=== PATIENT | male | born 1950 | race Caucasian/White ===

== ENCOUNTER → 2017-11-30 | Outpatient (CLI) | payer MEDICARE, BC ==
--- NOTE | 2017-11-30 13:48 | US ---
LOWER EXTREMITY VENOUS INSUFFICIENCY SIDE PERFORMED: Bilateral 1) Color flow is present and patency is documented in the following vessels. No DVT or SVT is noted . EIV Common Femoral Vein Deep Femoral Vein Femoral Vein Popliteal Vein Proximal Calf Veins Greater Saph Vein Upper Small Saph Vein 2) There is venous reflux noted at the following venous levels: Right GSV, Left popliteal vein, left small saph vein, left prox calf vein Extremely difficult exam due to patient movement and patient unable to perform valsalva maneuvers . W hen I pushed on patient's leg, patient would move causing artifact and inadequate valsalva maneuvers. IMPRESSION: No ultrasound evidence for acute DVT in either lower extremity. Suboptimal evaluation for venous insufficiency noted as detailed above.
== END | disposition home or self-care (01) ==
LOC: RADUSWWP 09:27
PROVIDERS: ATTEND Podiatrist
DX: I87.2 Venous insufficiency (chronic) (peripheral) (principal); M79.604 Pain in right leg; M79.605 Pain in left leg
CPT/HCPCS: 93923; 93970

== ENCOUNTER 2017-12-22 12:32 | Inpatient (IN) | payer MEDICARE, BC ==
--- NOTE | 2017-12-22 13:10 | ED ---
General Adult HPI - General Chief complaint: Extremity Problem,Nontraumatic Stated complaint: lt leg infection,swelling Time Seen by Provider: 12/22/17 12:53 Source: patient, family, RN notes reviewed Mode of arrival: wheelchair Limitations: no limitations - History of Present Illness Initial comments: Patient's a 67-year-old male presented to the emergency room today with a chief complaint of bilateral leg infection. 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 Soliman. He states he was advised coming here to the emergency room for admission and IV antibiotics. He states he was following up with wound care recently discharged from their service. States was doing well until just 2-3 days ago began having some increased pain to the top of both left and right foot. States it's itchy. States more painful. Patient states currently not on antibiotics. Patient denies any recent fever, chills, shortness of breath, chest pain, back pain, abdominal pain, nausea or vomiting, numbness or tingling, headaches or visual changes, or any other complaints. - Related Data Home Medications Medication Instructions Recorded Confirmed Lacosamide [Vimpat] 100 mg PO BID 11/05/17 12/22/17 carBAMazepine 600 mg PO BID 11/05/17 12/22/17 Ibuprofen [Motrin Ib] 200 - 400 mg PO Q6H PRN 12/22/17 12/22/17 Allergies Allergy/AdvReac Type Severity Reaction Status Date / Time Penicillins Allergy Rash/Hives Verified 12/22/17 13:06 Review of Systems ROS Statement: Those systems with pertinent positive or pertinent negative responses have been documented in the HPI. ROS Other: All systems not noted in ROS Statement are negative. Past Medical History Past Medical History: Skin Disorder Additional Past Medical History / Comment(s): wound on alley legs, lymph edema History of Any Multi-Drug Resistant Organisms: None Reported Past Surgical History: Joint Replacement, Tonsillectomy Additional Past Surgical History / Comment(s): rt knee replacement, Past Anesthesia/Blood Transfusion Reactions: No Reported Reaction Past Psychological History: No Psychological Hx Reported Smoking Status: Never smoker Past Alcohol Use History: Rare Past Drug Use History: None Reported - Past Family History Mother Family Medical History: No Reported History Father Family Medical History: Coronary Artery Disease (CAD) General Exam - General Exam Comments Initial Comments: General: The patient is awake and alert, in no distress, and does not appear acutely ill. Eye: Pupils are equal, round and reactive to light, extra-ocular movements are intact. No nystagmus. There is normal conjunctiva bilaterally. No signs of icterus. Ears, nose, mouth and throat: There are moist mucous membranes and no oral lesions. Neck: The neck is supple, there is no tenderness or JVD. Cardiovascular: There is a regular rate and rhythm. No murmur, rub or gallop is appreciated. Respiratory: Lungs are clear to auscultation, respirations are non-labored, breath sounds are equal. No wheezes, stridor, rales, or rhonchi. Musculoskeletal: Normal ROM, no tenderness. Strength 5/5. Sensation intact. Pulses equal bilaterally 2+. Neurological: A&O x 3. CN II-XII intact, There are no obvious motor or sensory deficits. Coordination appears grossly intact. Speech is normal. Skin: Patient does have increased redness to the lower extremities bilaterally. Right lower extremity has redness around the top right ankle. No streaking. There is redness to the top left foot and areas of scaling going up into the left calf area. Psychiatric: Cooperative, appropriate mood & affect, normal judgment. Limitations: no limitations Course Vital Signs 12/22/17 12:40 Temperature 97.5 F L Pulse Rate 60 Respiratory 18 Rate Blood Pressure 149/69 O2 Sat by Pulse 96 Oximetry Medical Decision Making - Medical Decision Making Patient's posterior of the myosin here the emergency room and admitted to the hospital. - Lab Data Result diagrams: 12/22/17 13:30 12/22/17 13:30 Lab Results 12/22/17 12/22/17 Range/Units 13:30 13:30 WBC 6.9 (3.8-10.6) k/uL RBC 4.26 L (4.30-5.90) m/uL Hgb 13.2 (13.0-17.5) gm/dL Hct 40.3 (39.0-53.0) % MCV 94.6 (80.0-100.0) fL MCH 30.9 (25.0-35.0) pg MCHC 32.6 (31.0-37.0) g/dL RDW 12.4 (11.5-15.5) % Plt Count 237 (150-450) k/uL Neutrophils % 68 % Lymphocytes % 18 % Monocytes % 8 % Eosinophils % 4 % Basophils % 1 % Neutrophils # 4.6 (1.3-7.7) k/uL Lymphocytes # 1.2 (1.0-4.8) k/uL Monocytes # 0.6 (0-1.0) k/uL Eosinophils # 0.3 (0-0.7) k/uL Basophils # 0.0 (0-0.2) k/uL Sodium 144 (137-145) mmol/L Potassium 4.5 (3.5-5.1) mmol/L Chloride 105 (98-107) mmol/L Carbon Dioxide 26 (22-30) mmol/L Anion Gap 13 mmol/L BUN 27 H (9-20) mg/dL Creatinine 0.88 (0.66-1.25) mg/dL Est GFR (CKD-EPI)AfAm >90 (>60 ml/min/1.73 sqM) Est GFR (CKD-EPI)NonAf 88 (>60 ml/min/1.73 sqM) Glucose 89 (74-99) mg/dL Calcium 9.1 (8.4-10.2) mg/dL Total Bilirubin 0.3 (0.2-1.3) mg/dL AST 18 (17-59) U/L ALT 15 L (21-72) U/L Alkaline Phosphatase 105 (38-126) U/L Total Protein 6.9 (6.3-8.2) g/dL Albumin 4.0 (3.5-5.0) g/dL Disposition Clinical Impression: Bilateral lower leg cellulitis Disposition: ADMITTED IP TO THIS HOSP Condition: Good Is patient prescribed a controlled substance at discharge?: No Referrals: Alirio Soliman DPM [STAFF PHYSICIAN] - 1-2 days
[2017-12-22] MEDS ORDERED: VANCOMYCIN 1,000 MG in SODIUM CHLORIDE 0.9% 250 ML IVPB STA (13:47)
[2017-12-22] MEDS ORDERED: VANCOMYCIN IV PER PHARMACY 1 EACH MISC MISCELLANE PRN (13:47)
[2017-12-22 14:00] LABS: Basophils % (A) 1 %; Eosinophils # (A) 0.3 k/uL (0-0.7); Eosinophils % (A) 4 %; HCT 40.3 % (39.0-53.0); HGB 13.2 gm/dL (13.0-17.5); Lymphocytes # (A) 1.2 k/uL (1.0-4.8); Lymphocytes % (A) 18 %; MCH 30.9 pg (25.0-35.0); MCHC 32.6 g/dL (31.0-37.0); MCV 94.6 fL (80.0-100.0); Mean Platelet Volume 7.2; Monocytes # (A) 0.6 k/uL (0-1.0); Monocytes % (A) 8 %; Neutrophils # (A) 4.6 k/uL (1.3-7.7); Neutrophils % (A) 68 %; Platelet Count 237 k/uL (150-450); RBC 4.26 m/uL (4.30-5.90); RDW 12.4 % (11.5-15.5); WBC 6.9 k/uL (3.8-10.6)
[2017-12-22] MEDS ORDERED: VANCOMYCIN 2,000 MG in SODIUM CHLORIDE 0.9% 500 ML IVPB STA (14:06)
[2017-12-22 14:17] LABS: ALT 15 U/L (21-72); AST 18 U/L (17-59); Alkaline Phosphatase 105 U/L (38-126); Anion Gap 13 mmol/L; Blood Urea Nitrogen 27 mg/dL (9-20); Calcium 9.1 mg/dL (8.4-10.2); Carbon Dioxide 26 mmol/L (22-30); Chloride 105 mmol/L (98-107); Glucose 89 mg/dL (74-99); Potassium 4.5 mmol/L (3.5-5.1); Sodium 144 mmol/L (137-145); Total Bilirubin 0.3 mg/dL (0.2-1.3); Total Protein 6.9 g/dL (6.3-8.2)
[2017-12-22] MEDS ORDERED: HYDROcodone/APAP 5-325MG 1 EACH TAB PO STA (14:28)
[2017-12-22] MEDS ORDERED: SODIUM CHLORIDE 0.9% 1,000 ML IV STA (14:29)
[2017-12-22] MEDS ORDERED: NALOXONE 0.4 MG/ML 1 ML VIAL IV PRN (14:40)
[2017-12-22] MEDS ORDERED: SODIUM CHLORIDE 0.9% 1,000 ML IV ONE (14:40)
[2017-12-22] MEDS ORDERED: ACETAMINOPHEN TAB 325 MG TAB PO PRN (14:40)
[2017-12-22] MEDS ORDERED: ONDANSETRON ODT 4 MG TAB PO PRN (14:41)
[2017-12-22] MEDS ORDERED: MORPHINE SULFATE 4MG/4ML SYRG IVP STA (16:03)
[2017-12-22] MEDS: HYDROcodone/APAP 5-325MG 1 EACH TAB PO PRN (20:30)
[2017-12-22] MEDS: carBAMazepine 200 MG TAB PO SCH (20:30)
[2017-12-22] MEDS: LACOSAMIDE 50 MG TABLET PO SCH (20:33)
--- NOTE | 2017-12-22 22:47 | HP ---
HISTORY AND PHYSICAL DATE OF ADMISSION: 12/22/2017 PRESENTING COMPLAINT: Lower extremity wounds. HISTORY OF PRESENT COMPLAINT: A pleasant 67-year-old patient of Dr. Yisel Alfaro. Chronic stable medical conditions include osteoarthritis, seizures, bilateral lower extremity lymphedema. The patient about 4 weeks ago developed what he describes as superficial blisters on the lower extremity and then the blisters broke down. The patient did go to the wound center, followed with Dr. Soliman and received treatment for the same. The patient was discharged from the wound center last week, but the patient again started having breakdown of the skin and Dr. Soliman then asked the patient to come to the hospital. The patient reveals skin is down to the feet, tender. Denies any fever and it does ooze. REVIEW OF SYSTEMS: CONSTITUTIONAL: Tired. HEENT: None. RESPIRATORY: None. CARDIOVASCULAR: None. GASTROINTESTINAL: None. GENITOURINARY: None. MUSCULOSKELETAL: None. DERMATOLOGICAL: As above. LYMPHATICS: Bilateral lower extremity lymphedema. PSYCHIATRY: None. NEUROLOGICAL: None. PAST MEDICAL HISTORY: Osteoarthritis, seizures, lymphedema, multiple lower extremity wounds, venous insufficiency. PAST SURGICAL HISTORY: Joint replacement, tonsillectomy, right knee replacement. SOCIAL HISTORY: Lives with sister. No smoking. Alcohol rarely. FAMILY HISTORY: Dementia. HOME MEDICATIONS: 1. Carbamazepine 600 mg p.o. b.i.d. 2. Vimpat 100 mg b.i.d. 3. Motrin 200-400 mg every 6 hours p.r.n. ALLERGIES: PENICILLIN. EXAMINATION: Temperature 97.8, pulse 57, respirations 18, blood pressure 114/74, pulse ox 97% on room air. GENERAL APPEARANCE: Well-built, BMI 34, lying in bed, tired-appearing. EYES: Pupils equal. Conjunctivae normal. HEENT: External appearance of nose and ears normal. Oral cavity normal. NECK: JVD not raised. Mass not palpable. RESPIRATORY: Effort normal. LUNGS: Fair air entry. CARDIOVASCULAR: First and second sounds normal. Lower extremity edema is present. ABDOMEN: Soft, nontender. Liver, spleen not palpable. LYMPHATIC: No lymph node palpable in neck or axillae. The patient may have lymphedema lower extremities. PSYCHIATRY: Alert and oriented x3. Mood and affect normal. DERMATOLOGICAL: Superficial breakdown of the skin from above the ankle down to the foot, appears to be all rather superficial area of redness, tenderness. INVESTIGATIONS: White count 6.9, hemoglobin 13.2. Potassium 4.5, BUN 27, creatinine 0.88. ASSESSMENT: 1. Bilateral lower extremity wounds, looks like patient may have underlying lymphedema/venous insufficiency. The patient does describe blisters previously and superficial skin has been denuded. This could be secondarily infected. 2. Primary osteoarthritis. 3. Seizure disorder. 4. Chronic lymphedema. 5. Obesity, BMI 34. PLAN: Will get a dermatological consultation. Patient may need a biopsy at the border of the lesions and normal skin. Will also consult Infectious Disease. The patient is started on vancomycin in the ER. Will hold off any dressing for right now. Until consultants have seen the patient. Care was discussed with the patient. Keep the legs elevated. MMELMERL / TRINIDAD: [id number] /
[2017-12-22] MEDS: VANCOMYCIN 1,750 MG in SODIUM CHLORIDE 0.9% 250 ML IVPB SCH (23:16)
[2017-12-23] MEDS ORDERED: HYDROcodone/APAP 5-325MG 1 EACH TAB ONE (02:20)
[2017-12-23] MEDS: LACOSAMIDE 50 MG TABLET PO SCH ×2 (07:39→20:08)
[2017-12-23] MEDS: carBAMazepine 200 MG TAB PO SCH ×2 (07:39→20:08)
[2017-12-23] MEDS: HYDROcodone/APAP 5-325MG 1 EACH TAB PO PRN ×3 (07:39→15:25)
[2017-12-23] MEDS: VANCOMYCIN 1,750 MG in SODIUM CHLORIDE 0.9% 250 ML IVPB SCH (11:06)
[2017-12-23] MEDS: SILVER sulfADIAZINE Cream 400 GM 1 APPLIC APPLIC TOPICAL SCH (18:43)
--- NOTE | 2017-12-23 21:29 | PN ---
PROGRESS NOTE DATE OF SERVICE: December 23, 2017. PRESENT COMPLAINT: Lower extremity wounds. INTERVAL HISTORY: This is a patient presented with bilateral lower extremity cellulitis and superficial wound having failed outpatient treatment. Dr. Carver from Infectious Disease is following. The redness and pain is still present. REVIEW OF SYSTEMS: Done for constitutional, cardiovascular, GI, pulmonary, relevant findings as above. CURRENT MEDICATIONS: Include IV vancomycin and Silvadene topical cream. PHYSICAL EXAMINATION: Afebrile. Pulse 60. Respiratory rate 16. Blood pressure 120/79, pulse ox 98% on room air. General appearance: Sitting up on a chair, awake. Eyes: Pupils equal. Conjunctivae normal. HEENT external appearance of nose and ears normal. Oral cavity normal. Neck JVD not raised. Mass not palpable. Respiratory effort lungs are clear. Cardiovascular 1st and second sounds normal. Lower extremity edema is present. Dermatological superficial wound to both lower extremities just above the ankle and there. INVESTIGATIONS: No blood work from today. ASSESSMENT: 1. Bilateral lower extremity wounds, superficial with associated cellulitis probably secondary to underlying lymphedema and venous insufficiency with possible secondary infection. 2. Primary osteoarthritis. 3. Seizure disorder. 4. Chronic lymphedema. 5. Obesity BMI 34. PLAN: Continue with IV antibiotics Silvadene dressing. Await input from Dermatology and follow with ID. [id number] / IJN: [id number] /
--- NOTE | 2017-12-24 00:02 | P.CONS ---
History of Present Illness - Reason for Consult Consult date: 12/23/17 - Chief Complaint leg swelling - History of Present Illness 67 year old male under the care of his sister and has cognitive deficiencies presents to the emergency center approximately one week after his last evaluation at the wound healing Center. The patient had been cared for because of his bilateral lower extremity edema and was treated with multilayer wraps which allowed resolution of his bilateral lower extremity edema and prior ulcerations. It appears now within a week of discharge she has had a significant worsening of his lower extremity edema, he now has ulceration and cellulitis that is a bit painful and pruritic. The lower extremity difficulties the patient is not having other significant complaints. He does not believe his had a fever, chills or rigors. He has been able to eat well without any significant nausea or emesis. Denies skin troubles other than the lower extremities. Review of Systems HEENT:Denies headache or acute visual change. Denies sinus or mouth discomforts. Denies neck stiffness or pain. Denies significant oral cavity pain. Denies difficulty on swallowing. Lungs: Denies significant shortness of breath, cough, sputum production, or hemoptysis. Cardiovascular: Denies significant shortness of breath, chest pain, chest wall pain, orthopnea, dyspnea on exertion, syncope Gastrointestinal:Denies nausea, vomiting, diarrhea, constipation, hematemesis, melena, hematochezia. No no significant change of bowel habit noticed. Musculoskeletal: denies significant myalgias or arthralgias. No new joint swelling. Denies new back pain. Skin: As per the HPI has swelling in ulcers to the bilateral lower extremity Neuro: Denies headache or visual change. Denies any new onset weakness or difficulty with ambulation. Denies falls or seizures. Psychiatric:Denies anxiety or depression. Endocrine: Denies significant fatigue, denies significant weight loss or weight gain. Past Medical History Past Medical History: Osteoarthritis (OA), Seizure Disorder, Skin Disorder, Vascular Disorder Additional Past Medical History / Comment(s): alley wound on alley legs-pt stated he was d'c from [facility] and from home care services iether thu or sat., lymph edema, chi--2016 d/t fall, epilepsy -last seizure 5 years ago, venous insufficiency. 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 rt knee goes out and has had falls.(fell last thursday) History of Any Multi-Drug Resistant Organisms: None Reported Past Surgical History: Joint Replacement, Tonsillectomy Additional Past Surgical History / Comment(s): rt knee replacement, Past Anesthesia/Blood Transfusion Reactions: No Reported Reaction Additional Psychological History / Comment(s): Cared for by his sister. Denies tobacco use. Retired. No experience. No children. No animal exposures Smoking Status: Never smoker - Past Family History Mother Family Medical History: Dementia Father Family Medical History: Coronary Artery Disease (CAD) Medications and Allergies Home Medications and Allergies Comment(s): Current Medications Acetaminophen (Tylenol Tab) 650 mg PO Q6HR PRN PRN Reason: Mild Pain or Fever > 100.5 Hydrocodone Bitart/Acetaminophen (Selah 5-325) 1 each PO Q4HR PRN PRN Reason: Moderate Pain Last Admin: 12/23/17 15:25 Dose: 1 each Carbamazepine (Tegretol) 600 mg PO BID [facility] Last Admin: 12/23/17 20:08 Dose: 600 mg Vancomycin HCl 1,750 mg/ (Sodium Chloride) 250 mls @ 125 mls/hr IVPB Q12H [facility] Last Admin: 12/23/17 11:06 Dose: 125 mls/hr Lacosamide (Vimpat) 100 mg PO BID [facility] Last Admin: 12/23/17 20:08 Dose: 100 mg Miscellaneous Information (Vancomycin Trough Due) 1 each MISCELLANE ONCE ONE Stop: 12/24/17 11:01 Naloxone HCl (Narcan) 0.2 mg IV Q2M PRN PRN Reason: Opioid Reversal Ondansetron HCl (Zofran Odt) 4 mg PO Q8HR PRN PRN Reason: Nausea Silver Sulfadiazine (Silvadene Cream) 1 applic TOPICAL DAILY [facility] Last Admin: 12/23/17 18:43 Dose: 1 applic Home Medications Medication Instructions Recorded Confirmed Type Lacosamide [Vimpat] 100 mg PO BID 11/05/17 12/22/17 History carBAMazepine 600 mg PO BID 11/05/17 12/22/17 History Ibuprofen [Motrin Ib] 200 - 400 mg PO Q6H PRN 12/22/17 12/22/17 History Allergies Allergy/AdvReac Type Severity Reaction Status Date / Time Penicillins Allergy Rash/Hives Verified 12/22/17 13:06 Physical Exam Vitals: Vital Signs Temp Pulse Resp BP Pulse Ox 12/23/17 23:00 97.7 F 60 18 119/66 98 12/23/17 15:00 97.6 F 51 L 18 112/59 100 12/23/17 06:07 97.4 F L 69 16 121/79 98 Intake and Output 12/23/17 12/23/17 12/24/17 14:59 22:59 06:59 Intake Total 200 Balance 200 Intake: Oral 200 Other: Voiding Method Toilet Toilet # Voids 3 [id number] male who is comfortable at this time but complains of pain to his bilateral lower extremities HEENT: Anicteric conjunctiva are pink and moist nasal mucosa grossly intact without significant lesions, there is no thrush. Neck: The neck is supple without significant lymphadenopathy or thyromegaly. Lungs: Good bilateral air entry without significant crackles or wheezing. There is no significant bronchial sounds. There is no egophony or dullness. Heart: Regular rate and rhythm with an audible S1-S2, no S3 no S4. There is no significant murmur click or rub, PMI was nondisplaced. Abdomen: Obese, Positive bowel sounds soft and nontender without palpable masses or organomegaly. There was no guarding or rebound. Extremities: The upper extremities have excellent pulses they are symmetric, no significant petechiae or telangiectasia. No splinter hemorrhages were noted. The lower extremities have evidence of chronic significant edema. There is evidence of chronic skin changes the bilateral lower extremities from venous stasis. However there is evidence of active ulcerations on the bilateral lower extremities distal just proximal to the ankle bilaterally the anterior half of both lower extremities have evidence of ulceration that appears to be just full- thickness with bloody dried crusty drainage, patient relates it's pruritic Neuro: The patient is awake and alert. Is able to interact he is a poor historian, relied and his sister on the phone to help with details. Results CBC & Chem 7: 12/22/17 13:30 12/22/17 13:30 Labs: Microbiology - Last 24 Hours (Table) 12/22/17 13:30 Blood Culture - Preliminary Blood No Growth after 24 hours Laboratory Results WBC 6.9 k/uL (3.8-10.6) 12/22/17 13:30 RBC 4.26 m/uL (4.30-5.90) L 12/22/17 13:30 Hgb 13.2 gm/dL (13.0-17.5) 12/22/17 13:30 Hct 40.3 % (39.0-53.0) 12/22/17 13:30 MCV 94.6 fL (80.0-100.0) 12/22/17 13:30 MCH 30.9 pg (25.0-35.0) 12/22/17 13:30 MCHC 32.6 g/dL (31.0-37.0) 12/22/17 13:30 RDW 12.4 % (11.5-15.5) 12/22/17 13:30 Plt Count 237 k/uL (150-450) 12/22/17 13:30 Neutrophils % 68 % 12/22/17 13:30 Lymphocytes % 18 % 12/22/17 13:30 Monocytes % 8 % 12/22/17 13:30 Eosinophils % 4 % 12/22/17 13:30 Basophils % 1 % 12/22/17 13:30 Neutrophils # 4.6 k/uL (1.3-7.7) 12/22/17 13:30 Lymphocytes # 1.2 k/uL (1.0-4.8) 12/22/17 13:30 Monocytes # 0.6 k/uL (0-1.0) 12/22/17 13:30 Eosinophils # 0.3 k/uL (0-0.7) 12/22/17 13:30 Basophils # 0.0 k/uL (0-0.2) 12/22/17 13:30 Sodium 144 mmol/L (137-145) 12/22/17 13:30 Potassium 4.5 mmol/L (3.5-5.1) 12/22/17 13:30 Chloride 105 mmol/L (98-107) 12/22/17 13:30 Carbon Dioxide 26 mmol/L (22-30) 12/22/17 13:30 Anion Gap 13 mmol/L 12/22/17 13:30 BUN 27 mg/dL (9-20) H 12/22/17 13:30 Creatinine 0.88 mg/dL (0.66-1.25) 12/22/17 13:30 Est GFR (CKD-EPI)AfAm >90 (>60 ml/min/1.73 sqM) 12/22/17 13:30 Est GFR (CKD-EPI)NonAf 88 (>60 ml/min/1.73 sqM) 12/22/17 13:30 Glucose 89 mg/dL (74-99) 12/22/17 13:30 Calcium 9.1 mg/dL (8.4-10.2) 12/22/17 13:30 Total Bilirubin 0.3 mg/dL (0.2-1.3) 12/22/17 13:30 AST 18 U/L (17-59) 12/22/17 13:30 ALT 15 U/L (21-72) L 12/22/17 13:30 Alkaline Phosphatase 105 U/L (38-126) 12/22/17 13:30 Total Protein 6.9 g/dL (6.3-8.2) 12/22/17 13:30 Albumin 4.0 g/dL (3.5-5.0) 12/22/17 13:30 Microbiology 12/22/17 13:30 Blood Blood Culture - Preliminary No Growth after 24 hours Assessment and Plan (1) Venous stasis ulcer of left lower leg with edema of left lower leg Current Visit: No Status: Acute Code(s): I83.029 - VARICOSE VEINS OF LEFT LOWER EXTREMITY W ULCER OF UNSP SITE; I83.892 - VARICOSE VEINS OF L LOW EXTREM WITH OTHER COMPLICATIONS; L97.929 - NON-PRS CHRONIC ULC UNSP PRT OF L LOW LEG W UNSP SEVERITY; R60.9 - EDEMA, UNSPECIFIED SNOMED Code(s): 33543937764478170 (2) Bilateral lower leg cellulitis Narrative/Plan: 67-year-old male who is under the care of the sister and the family home presents to Hospital 1 week after being discharged from the wound center with recurrence of the lower extremity edema and ulcerations. The patient's sister relates that he sits with his legs down, he picks at the lower extremities especially when he starts to have discomfort in his constantly been worsening in the last week. The patient this time allows her wrap to be applied. He does allow his legs to be elevated at the end of his chair that her help with his edema. He fortunately is not in severe pain but does not feel well. Antimicrobial therapy has really been initiated and await cultures to further help direct the course. He'll need to go back to the wound healing center after discharge for further wraps until he is healed and then will need to have further plans possibly CircAid or similar for chronic lower extremity edema control. We also do well with the addition of Atarax for control of his pruritus. We'll entry is adequate protein a multivitamin is added. Current Visit: Yes Status: Acute Code(s): L03.116 - CELLULITIS OF LEFT LOWER LIMB; L03.115 - CELLULITIS OF RIGHT LOWER LIMB SNOMED Code(s): 611825451
[2017-12-24] MEDS: hydrOXYzine HCL 25 MG TAB PO SCH ×5 (00:28→23:41)
[2017-12-24] MEDS: VANCOMYCIN 1,750 MG in SODIUM CHLORIDE 0.9% 250 ML IVPB SCH ×3 (00:28→23:45)
[2017-12-24] MEDS: carBAMazepine 200 MG TAB PO SCH ×2 (08:36→20:25)
[2017-12-24] MEDS: HYDROcodone/APAP 5-325MG 1 EACH TAB PO PRN (08:42)
[2017-12-24] MEDS: LACOSAMIDE 50 MG TABLET PO SCH ×2 (09:59→20:25)
[2017-12-24] MEDS: SILVER sulfADIAZINE Cream 400 GM 1 APPLIC APPLIC TOPICAL SCH (09:59)
[2017-12-24] MEDS ORDERED: VANCOMYCIN TROUGH DUE 1 EACH MISC MISCELLANE ONE (11:00)
[2017-12-24] MEDS: MULTIVITAMINS, THERA 1 EACH TAB PO SCH (11:54)
[2017-12-24 22:07] VITALS: PULSE 59
--- NOTE | 2017-12-24 23:13 | PN ---
PROGRESS NOTE DATE OF SERVICE: 12/24/2017 PRESENT COMPLAINT: Lower extremity wounds. INTERVAL HISTORY: The patient with bilateral lower extremity wounds, by Dr. Carver felt to be venous stasis ulcers with secondary cellulitis. The patient is on antibiotics, tolerating his diet. REVIEW OF SYSTEMS: Done for constitutional, cardiovascular, GI, pulmonary, dermatological; relevant findings as above. CURRENT MEDICATIONS: Include: 1. IV vancomycin. 2. Silvadene. EXAMINATION: Temperature 98, pulse 81, respirations 20, blood pressure 129/51, pulse ox 100% on room air. GENERAL APPEARANCE: Sitting up, comfortable. EYES: Pupils equal. Conjunctivae normal. HEENT: External nose and ears normal. Oral cavity normal. NECK: JVD not raised. Mass not palpable. RESPIRATORY: Effort normal. Lungs are clear. CARDIOVASCULAR: First and second sounds normal. No edema. DERMATOLOGICAL: Dressing over the wound just above the ankle. INVESTIGATIONS: Creatinine 0.64. ASSESSMENT: 1. Bilateral lower extremity venous insufficiency wounds with secondary cellulitis. 2. Possible bilateral lower extremity lymphedema. 3. Primary osteoarthritis. 4. Seizure disorder. 5. Obesity, BMI of 34. PLAN: Continue medication and treatment plan. Will check labs in the morning. Care was discussed with the patient. MMODL / IJN: [id number] /
--- NOTE | 2017-12-24 23:42 | P.PN ---
Subjective Progress Note Date: 12/24/17 Principal diagnosis: Lower extremity edema 67 year old male under the care of his sister and has cognitive deficiencies presents to the emergency center approximately one week after his last evaluation at the wound healing Center. The patient had been cared for because of his bilateral lower extremity edema and was treated with multilayer wraps which allowed resolution of his bilateral lower extremity edema and prior ulcerations. It appears now within a week of discharge she has had a significant worsening of his lower extremity edema, he now has ulceration and cellulitis that is a bit painful and pruritic. The lower extremity difficulties the patient is not having other significant complaints. He does not believe his had a fever, chills or rigors. He has been able to eat well without any significant nausea or emesis. Denies skin troubles other than the lower extremities. 12/24/2017 reveals the patient to be feeling somewhat better. He is denying intermitted troubles. Denies fevers chills or rigors or sweats. Lower extremity discomfort is improved with the current wraps in place. Objective - Vital Signs Vital signs: Vital Signs Temp 97.3 F L 12/24/17 22:05 Pulse 59 L 12/24/17 22:05 Resp 16 12/24/17 22:05 BP 144/66 12/24/17 22:05 Pulse Ox 100 12/24/17 22:05 Intake & Output 12/24/17 12/24/17 12/25/17 06:59 18:59 06:59 Intake Total 200 240 Balance 200 240 Intake: Oral 200 240 Other: Voiding Method Toilet # Voids 3 1 2 # Bowel Movements 0 - Exam 67-year-old male who is comfortable at this time the wraps have helped his lower extremity discomfort HEENT: Anicteric conjunctiva are pink and moist nasal mucosa grossly intact without significant lesions, there is no thrush. Neck: The neck is supple without significant lymphadenopathy or thyromegaly. Lungs: Good bilateral air entry without significant crackles or wheezing. There is no significant bronchial sounds. There is no egophony or dullness. Heart: Regular rate and rhythm with an audible S1-S2, no S3 no S4. There is no significant murmur click or rub, PMI was nondisplaced. Abdomen: Obese, Positive bowel sounds soft and nontender without palpable masses or organomegaly. There was no guarding or rebound. Extremities: The upper extremities have excellent pulses they are symmetric, no significant petechiae or telangiectasia. No splinter hemorrhages were noted. The lower extremities have evidence of chronic significant edema. There is evidence of chronic skin changes the bilateral lower extremities from venous stasis. However there is evidence of active ulcerations on the bilateral lower extremities distal just proximal to the ankle bilaterally the anterior half of both lower extremities have evidence of ulceration that appears to be just full- thickness with bloody dried crusty drainage, patient relates it's pruritic Neuro: The patient is awake and alert. Is able to interact he is a poor historian, no new acute complaint - Labs CBC & Chem 7: 12/22/17 13:30 12/24/17 11:33 Labs: Abnormal Lab Results - Last 24 Hours (Table) 12/24/17 Range/Units 11:33 Creatinine 0.64 L (0.66-1.25) mg/dL Microbiology - Last 24 Hours (Table) 12/22/17 13:30 Blood Culture - Preliminary Blood No Growth after 48 hours Laboratory Results WBC 6.9 k/uL (3.8-10.6) 12/22/17 13:30 RBC 4.26 m/uL (4.30-5.90) L 12/22/17 13:30 Hgb 13.2 gm/dL (13.0-17.5) 12/22/17 13:30 Hct 40.3 % (39.0-53.0) 12/22/17 13:30 MCV 94.6 fL (80.0-100.0) 12/22/17 13:30 MCH 30.9 pg (25.0-35.0) 12/22/17 13:30 MCHC 32.6 g/dL (31.0-37.0) 12/22/17 13:30 RDW 12.4 % (11.5-15.5) 12/22/17 13:30 Plt Count 237 k/uL (150-450) 12/22/17 13:30 Neutrophils % 68 % 12/22/17 13:30 Lymphocytes % 18 % 12/22/17 13:30 Monocytes % 8 % 12/22/17 13:30 Eosinophils % 4 % 12/22/17 13:30 Basophils % 1 % 12/22/17 13:30 Neutrophils # 4.6 k/uL (1.3-7.7) 12/22/17 13:30 Lymphocytes # 1.2 k/uL (1.0-4.8) 12/22/17 13:30 Monocytes # 0.6 k/uL (0-1.0) 12/22/17 13:30 Eosinophils # 0.3 k/uL (0-0.7) 12/22/17 13:30 Basophils # 0.0 k/uL (0-0.2) 12/22/17 13:30 Sodium 144 mmol/L (137-145) 12/22/17 13:30 Potassium 4.5 mmol/L (3.5-5.1) 12/22/17 13:30 Chloride 105 mmol/L (98-107) 12/22/17 13:30 Carbon Dioxide 26 mmol/L (22-30) 12/22/17 13:30 Anion Gap 13 mmol/L 12/22/17 13:30 BUN 27 mg/dL (9-20) H 12/22/17 13:30 Creatinine 0.64 mg/dL (0.66-1.25) L 12/24/17 11:33 Est GFR (CKD-EPI)AfAm >90 (>60 ml/min/1.73 sqM) 12/24/17 11:33 Est GFR (CKD-EPI)NonAf >90 (>60 ml/min/1.73 sqM) 12/24/17 11:33 Glucose 89 mg/dL (74-99) 12/22/17 13:30 Calcium 9.1 mg/dL (8.4-10.2) 12/22/17 13:30 Total Bilirubin 0.3 mg/dL (0.2-1.3) 12/22/17 13:30 AST 18 U/L (17-59) 12/22/17 13:30 ALT 15 U/L (21-72) L 12/22/17 13:30 Alkaline Phosphatase 105 U/L (38-126) 12/22/17 13:30 Total Protein 6.9 g/dL (6.3-8.2) 12/22/17 13:30 Albumin 4.0 g/dL (3.5-5.0) 12/22/17 13:30 Vancomycin Trough 16.7 ug/mL 12/24/17 11:33 Microbiology 12/22/17 13:30 Blood Blood Culture - Preliminary No Growth after 48 hours Assessment and Plan (1) Venous stasis ulcer of left lower leg with edema of left lower leg Current Visit: No Status: Acute Code(s): I83.029 - VARICOSE VEINS OF LEFT LOWER EXTREMITY W ULCER OF UNSP SITE; I83.892 - VARICOSE VEINS OF L LOW EXTREM WITH OTHER COMPLICATIONS; L97.929 - NON-PRS CHRONIC ULC UNSP PRT OF L LOW LEG W UNSP SEVERITY; R60.9 - EDEMA, UNSPECIFIED SNOMED Code(s): 81866467747890763 (2) Bilateral lower leg cellulitis Narrative/Plan: 67-year-old male who is under the care of the sister and the family home presents to Hospital 1 week after being discharged from the wound center with recurrence of the lower extremity edema and ulcerations. The patient's sister relates that he sits with his legs down, he picks at the lower extremities especially when he starts to have discomfort in his constantly been worsening in the last week. The patient this time allows her wrap to be applied. He does allow his legs to be elevated at the end of his chair that her help with his edema. He fortunately is not in severe pain but does not feel well. Antimicrobial therapy has really been initiated and await cultures to further help direct the course. He'll need to go back to the wound healing center after discharge for further wraps until he is healed and then will need to have further plans possibly CircAid or similar for chronic lower extremity edema control. We also do well with the addition of Atarax for control of his pruritus. We'll entry is adequate protein a multivitamin is added. 12/24/2017 patient is having improvement with the local wound care elevation and antibiotic therapy. The patient does not appear to need long-term intravenous antibiotic therapy and will transition to oral antibiotic therapy with local wound care at his discharge. We'll need to follow in the wound healing center so that his multilayer wraps can be restarted since he were highly effective for him in the past and then long-term compression to be obtained. Current Visit: Yes Status: Acute Code(s): L03.116 - CELLULITIS OF LEFT LOWER LIMB; L03.115 - CELLULITIS OF RIGHT LOWER LIMB SNOMED Code(s): 906733353
[2017-12-25 06:13] VITALS: BP 145/55; RESP 18; TEMP 98
[2017-12-25] MEDS: carBAMazepine 200 MG TAB PO SCH (07:44)
[2017-12-25] MEDS: hydrOXYzine HCL 25 MG TAB PO SCH ×2 (07:44→11:59)
[2017-12-25] MEDS: LACOSAMIDE 50 MG TABLET PO SCH (07:47)
[2017-12-25] MEDS: HYDROcodone/APAP 5-325MG 1 EACH TAB PO PRN ×2 (08:34→12:13)
[2017-12-25 09:05] LABS: Basophils % (A) 1 %; Eosinophils # (A) 0.3 k/uL (0-0.7); Eosinophils % (A) 3 %; HCT 38.5 % (39.0-53.0); HGB 12.6 gm/dL (13.0-17.5); Lymphocytes % (A) 12 %; MCH 31.2 pg (25.0-35.0); MCHC 32.8 g/dL (31.0-37.0); MCV 95.3 fL (80.0-100.0); Mean Platelet Volume 7.2; Monocytes # (A) 0.5 k/uL (0-1.0); Monocytes % (A) 6 %; Neutrophils # (A) 5.9 k/uL (1.3-7.7); Neutrophils % (A) 77 %; Platelet Count 212 k/uL (150-450); RBC 4.04 m/uL (4.30-5.90); RDW 12.4 % (11.5-15.5); WBC 7.7 k/uL (3.8-10.6)
[2017-12-25] MEDS ORDERED: SULFAMETHOX-TMP 800-160MG 1 EACH TAB PO STA (09:24)
[2017-12-25 09:38] LABS: Anion Gap 13 mmol/L; Blood Urea Nitrogen 13 mg/dL (9-20); Calcium 9.3 mg/dL (8.4-10.2); Carbon Dioxide 24 mmol/L (22-30); Chloride 107 mmol/L (98-107); Glucose 96 mg/dL (74-99); Potassium 4.4 mmol/L (3.5-5.1); Sodium 144 mmol/L (137-145)
[2017-12-25] MEDS: MULTIVITAMINS, THERA 1 EACH TAB PO SCH (11:59)
[2017-12-25] MEDS: SILVER sulfADIAZINE Cream 400 GM 1 APPLIC APPLIC TOPICAL SCH (14:14)
--- NOTE | 2017-12-25 19:08 | CONS ---
CONSULTATION DATE OF CONSULTATION: 12/25/2017. REQUESTING PHYSICIAN: Dr. Hess REASON FOR CONSULTATION: Leg rash. HISTORY OF PRESENT ILLNESS: This is a 67-year-old male with bilateral lower extremity edema and rash. He states his legs are much improved since he was admitted to the hospital. He states there were open sores that are now healing. He also states that the lower legs are painful and itchy. He admits to scratching the lower extremities and causing sores. He denies any fever or chills. Upon admission to the hospital, he was treated with IV vancomycin. He was later changed to oral Bactrim DS twice daily and topical Silvadene cream daily. PAST MEDICAL HISTORY: Osteoarthritis, seizure, lymphedema and venous insufficiency. PAST SURGICAL HISTORY: Joint replacement and tonsillectomy. SOCIAL HISTORY: Lives with the sister. Denies smoking and rare EtOH use. CURRENT MEDICATIONS: Tylenol 650 mg p.o. q.6 hours p.r.n. for pain. Hydrocodone and acetaminophen or [place] 5/325 1 every 1 p.o. q.4 hours p.r.n. for moderate pain. Tegretol 600 mg p.o. b.i.d., hydroxyzine 25 mg p.o. q.i.d. Vimpat 100 mg p.o. b.i.d., multivitamin 1 p.o. daily. Narcan 0.2 mg IV q.2 hours p.r.n. for opioid reversal. Zofran under the tongue , 4 mg p.o. q.8 hours p.r.n. for nausea. Silvadene topical application daily. Bactrim DS 1 p.o. b.i.d. PHYSICAL EXAMINATION: Skin is positive for edema, erythema, and scaling located on bilateral lower extremities. LABORATORY DATA: WBC 7.7, hemoglobin 12.6, hematocrit 38.5, red blood cells 4.04. Blood cultures negative at 48 hours. IMPRESSION: 1. Venous Stasis dermatitis. 2. Venostasis ulcer of the left lower leg with edema, appears to be improving. 3. Bilateral lower leg cellulitis, appears to be improving. RECOMMENDATIONS: 1. Start betamethasone dipropionate ointment. Apply to affected areas on bilateral lower extremities twice daily for 2 weeks. Follow up with [facility] outpatient in 2 weeks. 2. Continue to elevate bilateral lower extremities. Continue Silvadene cream daily to any open sores. 3. Continue with Bactrim DS and outpatient wound care per Infectious Disease recommendations. Thank you for the consultation. MMODL / IJN: [id number] / MTDHeber
[2017-12-25] MEDS ORDERED: SULFAMETHOX-TMP 800-160MG 1 EACH TAB PO SCH (21:00)
[2017-12-25] MEDS ORDERED: BETAMETHASONE DIPROPIONATE 0.05% OINTMENT 45 GM TUBE TOPICAL SCH (21:00)
--- NOTE | 2017-12-25 21:05 | DS ---
DISCHARGE SUMMARY DATE OF ADMISSION: December 22, 2017. DATE OF DISCHARGE: December 26, 2017. FINAL DIAGNOSES: 1. Acute bilateral lower extremity venous insufficiency wounds with secondary cellulitis present on admission. 2. Possible bilateral lower extremity lymphedema. 3. Primary osteoarthritis. 4. Seizure disorder. 5. Obesity BMI 34. HOSPITAL COURSE: This is a patient seems to have a combination of venous insufficiency and lymphedema, lower extremity, has had superficial blisters that have broken down. The patient did follow with Dr. Soliman at the wound care center and was discharged in the wound care center. Subsequently, felt to have cellulitis. The patient was treated with antibiotics and switched over to Bactrim and Silvadene cream to which he responded well. CONSULTATION: Dr. Carver infectious Disease, Dr. Navarro from Dermatology. EXAM: Lungs are clear. Cardiovascular 1st and 2nd sounds normal. INVESTIGATIONS: White count 7.7, hemoglobin 12.6. DISCHARGE MEDICATIONS: 1. Vimpat 100 mg p.o. b.i.d. 2. Carbamazepine 600 mg b.i.d. 3. Diprolene 0.05% topical b.i.d. 4. Multivitamin 1 tablet p.o. daily. 5. Silvadene 1% topical daily. 6. Bactrim DS 1 tablet b.i.d. for 14 tablets. Wound care to continue as per Dr. Carver. Follow up with the Wound Care Center next week. Follow up with Yisel Alfaro at 01/08/18. Copy to Yisel Alfaro. MMELMERL / IJN: [id number] /
--- NOTE | 2017-12-26 08:45 | P.PN ---
Subjective Progress Note Date: 12/25/17 Principal diagnosis: Lower extremity edema 67 year old male under the care of his sister and has cognitive deficiencies presents to the emergency center approximately one week after his last evaluation at the wound healing Center. The patient had been cared for because of his bilateral lower extremity edema and was treated with multilayer wraps which allowed resolution of his bilateral lower extremity edema and prior ulcerations. It appears now within a week of discharge she has had a significant worsening of his lower extremity edema, he now has ulceration and cellulitis that is a bit painful and pruritic. The lower extremity difficulties the patient is not having other significant complaints. He does not believe his had a fever, chills or rigors. He has been able to eat well without any significant nausea or emesis. Denies skin troubles other than the lower extremities. 12/24/2017 reveals the patient to be feeling somewhat better. He is denying intermitted troubles. Denies fevers chills or rigors or sweats. Lower extremity discomfort is improved with the current wraps in place. 12/25/2017 patient more comfortable and looks forward to going home, denies fevers and pain is improved. Objective - Vital Signs Vital signs: Vital Signs Temp 98.0 F 12/25/17 05:43 Pulse 59 L 12/25/17 05:43 Resp 18 12/25/17 05:43 BP 145/55 12/25/17 05:43 Pulse Ox 99 12/25/17 05:43 - Exam 67-year-old male who is comfortable at this time the wraps have helped his lower extremity discomfort HEENT: Anicteric conjunctiva are pink and moist nasal mucosa grossly intact without significant lesions, there is no thrush. Neck: The neck is supple without significant lymphadenopathy or thyromegaly. Lungs: Good bilateral air entry without significant crackles or wheezing. There is no significant bronchial sounds. There is no egophony or dullness. Heart: Regular rate and rhythm with an audible S1-S2, no S3 no S4. There is no significant murmur click or rub, PMI was nondisplaced. Abdomen: Obese, Positive bowel sounds soft and nontender without palpable masses or organomegaly. There was no guarding or rebound. Extremities: The upper extremities have excellent pulses they are symmetric, no significant petechiae or telangiectasia. No splinter hemorrhages were noted. The lower extremities have evidence of chronic significant edema. There is evidence of chronic skin changes the bilateral lower extremities from venous stasis. However there is evidence of active ulcerations on the bilateral lower extremities that have responded well to topical therapy and compression and elevation. Neuro: The patient is awake and alert. Is able to interact he is a poor historian, no new acute complaint - Labs CBC & Chem 7: 12/25/17 08:20 12/25/17 08:20 Labs: Abnormal Lab Results - Last 24 Hours (Table) 12/25/17 Range/Units 08:20 RBC 4.04 L (4.30-5.90) m/uL Hgb 12.6 L (13.0-17.5) gm/dL Hct 38.5 L (39.0-53.0) % Microbiology - Last 24 Hours (Table) 12/22/17 13:30 Blood Culture - Preliminary Blood No Growth after 72 hours Laboratory Results WBC 7.7 k/uL (3.8-10.6) 12/25/17 08:20 RBC 4.04 m/uL (4.30-5.90) L 12/25/17 08:20 Hgb 12.6 gm/dL (13.0-17.5) L 12/25/17 08:20 Hct 38.5 % (39.0-53.0) L 12/25/17 08:20 MCV 95.3 fL (80.0-100.0) 12/25/17 08:20 MCH 31.2 pg (25.0-35.0) 12/25/17 08:20 MCHC 32.8 g/dL (31.0-37.0) 12/25/17 08:20 RDW 12.4 % (11.5-15.5) 12/25/17 08:20 Plt Count 212 k/uL (150-450) 12/25/17 08:20 Neutrophils % 77 % 12/25/17 08:20 Lymphocytes % 12 % 12/25/17 08:20 Monocytes % 6 % 12/25/17 08:20 Eosinophils % 3 % 12/25/17 08:20 Basophils % 1 % 12/25/17 08:20 Neutrophils # 5.9 k/uL (1.3-7.7) 12/25/17 08:20 Lymphocytes # 1.0 k/uL (1.0-4.8) 12/25/17 08:20 Monocytes # 0.5 k/uL (0-1.0) 12/25/17 08:20 Eosinophils # 0.3 k/uL (0-0.7) 12/25/17 08:20 Basophils # 0.0 k/uL (0-0.2) 12/25/17 08:20 Sodium 144 mmol/L (137-145) 12/25/17 08:20 Potassium 4.4 mmol/L (3.5-5.1) 12/25/17 08:20 Chloride 107 mmol/L (98-107) 12/25/17 08:20 Carbon Dioxide 24 mmol/L (22-30) 12/25/17 08:20 Anion Gap 13 mmol/L 12/25/17 08:20 BUN 13 mg/dL (9-20) 12/25/17 08:20 Creatinine 0.68 mg/dL (0.66-1.25) 12/25/17 08:20 Est GFR (CKD-EPI)AfAm >90 (>60 ml/min/1.73 sqM) 12/25/17 08:20 Est GFR (CKD-EPI)NonAf >90 (>60 ml/min/1.73 sqM) 12/25/17 08:20 Glucose 96 mg/dL (74-99) 12/25/17 08:20 Calcium 9.3 mg/dL (8.4-10.2) 12/25/17 08:20 Total Bilirubin 0.3 mg/dL (0.2-1.3) 12/22/17 13:30 AST 18 U/L (17-59) 12/22/17 13:30 ALT 15 U/L (21-72) L 12/22/17 13:30 Alkaline Phosphatase 105 U/L (38-126) 12/22/17 13:30 Total Protein 6.9 g/dL (6.3-8.2) 12/22/17 13:30 Albumin 4.0 g/dL (3.5-5.0) 12/22/17 13:30 Vancomycin Trough 16.7 ug/mL 12/24/17 11:33 Microbiology 12/22/17 13:30 Blood Blood Culture - Preliminary No Growth after 72 hours Assessment and Plan (1) Venous stasis ulcer of left lower leg with edema of left lower leg Status: Acute Code(s): I83.029 - VARICOSE VEINS OF LEFT LOWER EXTREMITY W ULCER OF UNSP SITE; I83.892 - VARICOSE VEINS OF L LOW EXTREM WITH OTHER COMPLICATIONS; L97.929 - NON-PRS CHRONIC ULC UNSP PRT OF L LOW LEG W UNSP SEVERITY; R60.9 - EDEMA, UNSPECIFIED SNOMED Code(s): 21049059703057196 (2) Bilateral lower leg cellulitis Narrative/Plan: 67-year-old male who is under the care of the sister and the family home presents to Hospital 1 week after being discharged from the wound center with recurrence of the lower extremity edema and ulcerations. The patient's sister relates that he sits with his legs down, he picks at the lower extremities especially when he starts to have discomfort in his constantly been worsening in the last week. The patient this time allows her wrap to be applied. He does allow his legs to be elevated at the end of his chair that her help with his edema. He fortunately is not in severe pain but does not feel well. Antimicrobial therapy has really been initiated and await cultures to further help direct the course. He'll need to go back to the wound healing center after discharge for further wraps until he is healed and then will need to have further plans possibly CircAid or similar for chronic lower extremity edema control. We also do well with the addition of Atarax for control of his pruritus. We'll entry is adequate protein a multivitamin is added. 12/24/2017 patient is having improvement with the local wound care elevation and antibiotic therapy. The patient does not appear to need long-term intravenous antibiotic therapy and will transition to oral antibiotic therapy with local wound care at his discharge. We'll need to follow in the wound healing center so that his multilayer wraps can be restarted since he were highly effective for him in the past and then long-term compression to be obtained. 12/25/2017 patient with further improvement and is being discharged in care of the sister. Will follow in [facility] next week Thursday for wraps, will use silvadene and kerlix with KAM till seen. Antibiotic therapy with keflex at discharge. Status: Acute Code(s): L03.116 - CELLULITIS OF LEFT LOWER LIMB; L03.115 - CELLULITIS OF RIGHT LOWER LIMB SNOMED Code(s): 882249135
--- NOTE | 2018-01-12 12:34 | CDI ---
Documentation Clarification Form Date: 01/12/2018 12:00:00 AM From: SURJIT Huynh; Estrella Bañuelos Mortgage Counselor Phone: If you have a question about this query, please contact Estrella Bañuelos Mortgage Counselor at [phone] between 8am and 5pm. Admit Date: 12/22/2017 2:40:00 PM Patient Name: Bunny Grant Visit Number: [id number] Discharge Date: 12/25/2017 ATTENTION: The Clinical Documentation Specialists (CDI) and [facility] Coding Staff appreciate your assistance in clarifying documentation. Please respond to the clarification below the line at the bottom and electronically sign. The CDI & [facility] Coding staff will review the response and follow-up if needed. Please note: Queries are made part of the Legal Health Record. If you have any questions, please contact the author of this message via ITS. Dr. Mohan Hess Patient presented with cellulitis due to venous insufficiency wounds. Infectious disease consult dated 12/23 lists varicose veins with ulcer. This documentation needs clarification for accurate coding assignment. In your professional opinion, can you please clarify? Varicose veins with ulcer of the lower extremities No varicose veins Other, please specify Unable to determine. varicose veins with ulcer of the lower extremity MTDD
== END 2017-12-25 15:40 | disposition home health service (06) | DRG 603 ==
LOC: EC 12:32 → 4MS4W 14:40
PROVIDERS: ADMIT Hospitalist; ATTEND Hospitalist
DX: L03.115 Cellulitis of right lower limb (principal); L97.819 Non-pressure chronic ulcer of other part of right lower leg with unspecified severity; L97.829 Non-pressure chronic ulcer of other part of left lower leg with unspecified severity; I83.218 Varicose veins of right lower extremity with both ulcer of other part of lower extremity and inflammation; I83.228 Varicose veins of left lower extremity with both ulcer of other part of lower extremity and inflammation; L03.116 Cellulitis of left lower limb; E66.9 Obesity, unspecified; G40.909 Epilepsy, unspecified, not intractable, without status epilepticus; I89.0 Lymphedema, not elsewhere classified; L29.9 Pruritus, unspecified; M19.91 Primary osteoarthritis, unspecified site; Z68.34 Body mass index [BMI] 34.0-34.9, adult; Z82.49 Family history of ischemic heart disease and other diseases of the circulatory system; Z96.651 Presence of right artificial knee joint; Z79.1 Long term (current) use of non-steroidal anti-inflammatories (NSAID); Z79.899 Other long term (current) drug therapy; Z88.0 Allergy status to penicillin
CPT/HCPCS: 36415; 80048; 80053; 80202; 82565; 85025; 87040; 96365; 96366; 96375; 99284